=== PATIENT | male | born 1930 | race Caucasian/White ===

== ENCOUNTER 2017-04-26 07:49 | Inpatient (IN) | payer OTHER, MEDICARE ==
[2017-04-11 14:38] LABS: % IMMATURE GRANULYOCYTES 0.6 % (0.0-1.1); ABSOLUTE IMMATURE GRANULOCYTES 0.05 10^3/uL (0.00-0.10); ABSOLUTE NRBC COUNT 0.02 10^3/uL (0-0.01); ADD DIFF? NO; ADD MORPH? NO; ADD SCAN? NO; ATYPICAL LYMPHOCYTE FLAG 20 (0-99); FRAGMENT RBC FLAG 0 (0-99); HEMATOCRIT 47.2 % (40.0-51.0); HEMOGLOBIN 16.2 g/dL (13.7-17.5); LEFT SHIFT FLG 0 (0-99); LIPEMIA HEMOLYSIS FLAG 90 (0-99); MEAN CELL HEMOGLOBIN 30.5 pg (27.9-34.1); MEAN CELL HEMOGLOBIN CONCENTR. 34.3 g/dL (32.4-36.7); MEAN CELL VOLUME 88.7 fL (81.5-99.8); MEAN PLATELET VOLUME 9.6 fL (8.7-11.7); NRBC-AUTO% 0.2 % (0.0-0.2); PLATELET CLUMPS FLAG 0 (0-99); PLATELET COUNT 247 10^3/uL (150-400); RED BLOOD CELL COUNT 5.32 10^6/uL (4.40-6.38); RED CELL DISTRIBUTION WIDTH 12.8 % (11.5-15.2)
[2017-04-11 16:27] LABS: ANION GAP 12 mEq/L (8-16); CALCIUM 9.7 mg/dL (8.5-10.4); CARBON DIOXIDE 24 mEq/l (22-31); CHLORIDE 106 mEq/L (97-110); CREATININE 1.1 mg/dL (0.7-1.3); GLOMERULAR FILTRATION RATE > 60; GLUCOSE 114 mg/dL (70-100); POTASSIUM 3.8 mEq/L (3.5-5.2); SODIUM 142 mEq/L (134-144)
[~2017-04-26 07:49] MED LIST: POVIDONE-IODINE 20 ML in SODIUM CL IRRIG SOLUTION 500 ML IRR ONE; ROPIVACAINE 0.2% 80 MG, EPINEPHrine 0.2 MG, KETOROLAC TROMETHAMINE 30 MG in BAG 0 ML IU ONE; TRANEXAMIC ACID 700 MG in NS 100 ML IV ONE; VANCOMYCIN 1 GM VIAL ONE; ceFAZolin 1 GM/5 ML SYR ONE
[2017-04-26] MEDS ORDERED: ACETAMINOPHEN 325 MG TAB PO ONE (08:04)
[2017-04-26] MEDS ORDERED: FAMOTIDINE 20 MG TAB PO ONE (08:04)
[2017-04-26] MEDS ORDERED: ceFAZolin 2 GM/DEXTROSE 100 ML IV ONE (08:04)
[2017-04-26] MEDS ORDERED: DEXAMETHASONE 4 MG/ML VIAL IVP ONE (08:04)
[2017-04-26] MEDS ORDERED: LR 1,000 ML IV ONE (08:09)
[2017-04-26] MEDS ORDERED: LIDOCAINE 1% 2 ML INJ ID PRN (08:09)
[2017-04-26] MEDS ORDERED: LIDOCAINE 1% 2 ML INJ ONE (08:21)
[2017-04-26] MEDS ORDERED: FAMOTIDINE 20 MG TAB ONE (08:32)
[2017-04-26] MEDS ORDERED: ACETAMINOPHEN 325 MG TAB ONE (08:32)
[2017-04-26] MEDS ORDERED: DEXAMETHASONE 4 MG/ML VIAL ONE (08:32)
[2017-04-26] MEDS ORDERED: CEFAZOLIN 2 GM/DEXTROSE/100 ML BAG IV ONE (08:33)
--- NOTE | 2017-04-26 08:58 | PDHPUP ---
History & Physical Update H&P update statement: This history and physical update is based on an assessment of the patient which was completed after admission or registration (within 24 hours), but prior to the surgery/procedure. H&P update: H&P reviewed & patient examined, no change in patient's condition since H&P completed
[2017-04-26] MEDS ORDERED: MIDAZOLAM 2 MG/2 ML VIAL IVP ONE (09:21)
--- NOTE | 2017-04-26 09:21 | PDANEPAE ---
ANE History of Present Illness OA knee ANE Past Medical History - Cardiovascular History Hx Hypertension: Yes Hx Arrhythmias: No Hx Chest Pain: No Hx Coronary Artery / Peripheral Vascular Disease: Yes Hx CHF / Valvular Disease: No Hx Palpitations: No Cardiovascular History Comment: [place] 15 YRS AGO - Pulmonary History Hx COPD: No Hx Asthma/Reactive Airway Disease: No Hx Recent Upper Respiratory Infection: No Hx Oxygen in Use at Home: No Hx Sleep Apnea: No Sleep Apnea Screening Result - Last Documented: Negative - Neurologic History Hx Cerebrovascular Accident: No Hx Seizures: No Hx Dementia: No - Endocrine History Hx Diabetes: Yes Endocrine History Comment: HYPOTHYROID - Renal History Hx Renal Disorders: No Renal History Comment: PROSTATECTOMY - Liver History Hx Hepatic Disorders: No - Neurological & Psychiatric Hx Hx Neurological and Psychiatric Disorders: No - Cancer History Hx Cancer: Yes Cancer History Comment: PROSTATE - Congenital Disorder History Hx Congenital Disorders: No - GI History Hx Gastrointestinal Disorders: No - Other Health History Other Health History: SKIN CONDITION PALMS HANDS - DRYNESS,CRACKING - Chronic Pain History Chronic Pain: Yes (R KNEE & L FOOT) - Surgical History Prior Surgeries: L TKA. R REJI. PROSTATE. CATARACTS. ANGIOGRAM W/STENT 15 YRS AGO ANE Review of Systems - Exercise capacity METS (RN): 4 METS ANE Patient History - Allergies Allergies/Adverse Reactions: No Known Allergies Allergy (Unverified 03/16/17 17:04) - Home Medications Home Medications: Ascorbic Acid [Vitamin C 500 mg (*)] 500 mg PO DAILY 03/16/17 [Last Taken ] Aspirin EC [Aspirin EC 81 mg (*)] 81 mg PO DAILY 03/16/17 [Last Taken 04/19/17] Atorvastatin Calcium [Lipitor 10 mg (*)] 10 mg PO DAILY 03/16/17 [Last Taken 07:00] Calcipotriene 1 cas TP BID 03/16/17 [Last Taken 04/19/17] Calcium Carb W/Vit D [Calcium Carb W/Vit D 500/200 (*)] 500 mg PO BID 03/16/17 [ Last Taken 04/19/17] Cholecalciferol Vit D3 [Vitamin D3 (*)] 2,000 units PO BID 03/16/17 [Last Taken 04/19/17] Herbals/Supplements -Info Only 1 ea PO DAILY 03/16/17 [Last Taken 04/19/17] Hydrochlorothiazide [HCTZ (*)] 25 mg PO DAILY 03/16/17 [Last Taken 04/25/17 08: 00] Levothyroxine [Synthroid 175 mcg (*)] 175 mcg PO DAILY06 03/16/17 [Last Taken 07:00] Lisinopril [Zestril 20 mg (*)] 20 mg PO DAILY 03/16/17 [Last Taken 04/25/17 08: 00] Magnesium Oxide [Magnesium Oxide 400 mg (*)] 800 mg PO DAILY 03/16/17 [Last Taken 04/19/17] Multivitamins [Multivitamin (*)] 1 each PO DAILY 03/16/17 [Last Taken 04/19/17] [place]-3 Fatty Acids [Fish Oil 1000 mg (*)] 1,000 mg PO BID 03/16/17 [Last Taken 04/19/17] Potassium Cl [Klor-Con 20 meq (*)] 20 meq PO DAILY 03/16/17 [Last Taken 08:00] Triamcinolone 0.1% [Triamcinolone 0.1% Cream (*)] 1 cas TP BID 03/16/17 [Last Taken 04/19/17] amLODIPine BESYLATE [Norvasc 5 mg (*)] 5 mg PO DAILY 03/16/17 [Last Taken 07:00] - NPO status NPO Since - Liquids (Date): 04/25/17 NPO Since - Liquids (Time): 22:00 NPO Since - Solids (Date): 04/25/17 NPO Since - Solids (Time): 19:30 - Smoking Hx Smoking Status: Former smoker - Family Anes Hx Family Hx Anesthesia Complications: NEG ANE Labs/Vital Signs - Labs Result Diagrams: 04/11/17 14:26 04/11/17 14:26 - Vital Signs Blood Pressure: 137/95 Heart Rate: 75 Respiratory Rate: 16 O2 Sat (%): 93 Height: 172.72 cm Weight: 70.307 kg ANE Physical Exam - Airway Neck exam: FROM Mallampati Score: Class 2 Mouth exam: normal dental/mouth exam - Pulmonary Pulmonary: no respiratory distress - Cardiovascular Cardiovascular: regular rate and rhythym - ASA Status ASA Status: III ANE Anesthesia Plan Anesthesia Plan: MAC, spinal Regional Anesthesia: adductor canal FNB
[2017-04-26] MEDS ORDERED: PROPOFOL/EMULSION 500 MG/50 ML BOTTLE IV ONE (09:29)
[2017-04-26] MEDS ORDERED: PHENYLEPHRINE HCL 100 MCG/ML SYR ONE ×2 (09:59→10:49)
[2017-04-26] MEDS ORDERED: ROPIVACAINE HCL 150 MG/30 ML INJ ONE (10:17)
[2017-04-26] MEDS ORDERED: PROPOFOL 200 MG/20 ML VIAL ONE (10:50)
[2017-04-26] MEDS ORDERED: NALOXONE HCL 0.4 MG/ML INJ IVP PRN (11:15)
[2017-04-26] MEDS ORDERED: fentaNYL 100 MCG/2 ML INJ IVP PRN (11:15)
[2017-04-26] MEDS ORDERED: HYDROmorphONE/DILAUDID 1 MG/ML SYR IVP PRN (11:15)
[2017-04-26] MEDS ORDERED: ONDANSETRON 4 MG/2 ML VIAL IVP PRN ×2 (11:15→11:34)
--- NOTE | 2017-04-26 11:19 | POSTOPPROG ---
Post Op Note Date of Operation: 04/26/17 Surgeon: Papo Browne Shear Setter: Mian Chopra/Ayo Patel Anesthesiologist: Lenin Anesthesia: IV Sedation, Spinal Post-op Diagnosis: Right knee degenerative arthritis. Procedure: Right total knee arthroplasty. Inf/Abcess present in the surg proc area at time of surgery?: No EBL: 50-100 (Adductor canal block)
[2017-04-26] MEDS ORDERED: PROMETHAZINE HCL 25 MG SUPPR PR PRN (11:34)
[2017-04-26] MEDS ORDERED: DIPHENOXYLATE/ATROPINE LOMOTIL 1 TAB PO PRN (11:34)
[2017-04-26] MEDS ORDERED: BISACODYL 10 MG SUPP PR PRN (11:34)
[2017-04-26] MEDS ORDERED: ONDANSETRON DISINTEGRATING 4 MG TAB PO PRN (11:34)
[2017-04-26] MEDS ORDERED: MAGNESIUM HYDROXIDE 30 ML UDCUP PO PRN (11:34)
[2017-04-26] MEDS ORDERED: KETOROLAC 30 MG/1 ML SDV IVP PRN (11:34)
[2017-04-26] MEDS ORDERED: POLYETHYLENE GLYCOL 3350 17 GM PKT PO PRN (11:34)
[2017-04-26] MEDS ORDERED: PROMETHAZINE HCL 25 MG/ML INJ IVP PRN (11:34)
[2017-04-26] MEDS ORDERED: METOCLOPRAMIDE 10 MG/2 ML VIAL IVP PRN (11:34)
[2017-04-26] MEDS ORDERED: TEMAZEPAM 15 MG CAP PO PRN (11:34)
[2017-04-26] MEDS ORDERED: oxyCODONE IR 5 MG TAB PO PRN (11:34)
[2017-04-26] MEDS ORDERED: LACTULOSE 20 GM/30 ML UDCUP PO PRN (11:34)
[2017-04-26] MEDS ORDERED: CYCLOBENZAPRINE 10 MG TAB PO PRN (11:34)
[2017-04-26] MEDS ORDERED: diphenhydrAMINE 25 MG CAP PO PRN (11:34)
[2017-04-26] MEDS ORDERED: PHARMACY PAIN CONSULT 1 EA MISC PRN (11:34)
[2017-04-26] MEDS ORDERED: NS 500 ML IV PRN (11:34)
--- NOTE | 2017-04-26 11:47 | POSTANESTH ---
Post Anesthetic Evaluation Cardiovascular Status: Normal, Stable Respiratory Status: Normal, Stable Level of Consciousness/Mental Status: Can Participate in Eval Pain Control: Adequate, Prn Tx Ordered Nausea/Vomiting Control: Adequate, Prn Tx Ordered Complications Possibly Related to Anesthesia: None Noted
[2017-04-26] MEDS ORDERED: LR 1,000 ML IV SCH (12:00)
[2017-04-26] MEDS: ACETAMINOPHEN 325 MG TAB PO SCH ×3 (12:44→23:48)
--- NOTE | 2017-04-26 13:55 | GOP ---
[f rep st] OPERATIVE REPORT DATE OF OPERATION: 04/26/2017 SURGEON: Papo Browne MD AMALGAMATOR: Mian Chopra and Ayo Patel. ANESTHESIA: A combination of Marcaine, spinal, IV sedation, and adductor canal block. ANESTHESIOLOGIST: Dr. Tavon Phelps. PREOPERATIVE DIAGNOSIS: Right knee severe degenerative arthritis, primarily involving the patellofe moral joint. POSTOPERATIVE DIAGNOSIS: Right knee severe degenerative arthritis, primarily involving the patellof emoral joint. PROCEDURE PERFORMED: Right total knee arthroplasty, cemented, Mercedes and Nephew Journey II, posterio r stabilized. FINDINGS: DESCRIPTION OF PROCEDURE: The patient was given 2 g of preoperative IV Ancef within 60 minutes of s urgery. He also received IV tranexamic acid at a dose of 10 mg/kg. He was placed on the operating room table and given spinal anesthesia with Marcaine by Dr. Phelps. He was then placed supine and given IV sedation. A Gary catheter was not used. He wore a MEEK stocking and SCD on the nonop erative leg. His right lower extremity was prepped with ChloraPrep from the upper thigh tourniquet to the tips of the toes. It was draped free using sterile sheets, stockinette, and Ioban plastic ad hesive drape. The right lower leg was wrapped with compressive Coban. The leg was exsanguinated wi th elevation and a 6-inch compressive wrap, and the tourniquet was inflated to 250 mmHg. The World Health Organization time-out was performed to verify the correct patient identity and the correct grewal rgical side and site. The Spencer time-out was also performed. The eFlixayo leg holding device was sterilely attached to the operating room table and used throughout the procedure to help position the knee. A straight midline incision was made centered on the cevallos lla. Subcutaneous tissues were sharply divided and hemostasis was obtained using electrocautery. A medial subcutaneous flap was developed, and the capsule and synovium were opened in a medial parapa tellar fashion. Extensive degenerative changes were present in his patellofemoral joint. He was er russell down to subchondral bone on both the patella and the femoral sulcus. The medial capsule and pe riosteum were lightly elevated off the rim of the medial tibial plateau all the way around to the po steromedial corner. In order to improve exposure, the patella was prepared first. The original thickness of the patella was measured. Peripheral osteophytes were removed. I cut a f lat surface on the back of the patella. It was sized for a 41 mm resurfacing component. I removed enough bone from the patella such that the remaining bone plus the thickness of the patellar compone nt recreated the original thickness of the patella. The composite thickness of the patella was 22 m m. The intramedullary alignment guide system was used to set up the distal femoral cut. The distal femur was cut in 5 degrees of valgus. I made a +2 mm cut on the distal femur. The sizing jig was used to determine proper femoral sizing. I shifted the jig anteriorly 2 mm in order to accommodate a size 6 component. Without notching the anterior cortex. The 5 in 1 cutting block was applied, an d the anterior and posterior condylar cuts and chamfer cuts were made. The final jig was used to re move the central portion of the distal femur to accommodate the posterior stabilized femoral compone nt. I was careful to determine proper rotation by referencing off Whitesides line. Each cut was ch ecked for accuracy before and after it was made. The femur was sized for a size 6 posterior stabili zed component. The trial component was tapped securely into place and was a good fit. Next, the tibia was prepared. The proximal tibial cut was made using the extramedullary alignment g uide system. The cut was made in a few degrees of posterior slope. I was careful to achieve proper varus, valgus alignment and proper rotation. The posterior compartment was cleared of meniscal rem nants. Osteophytes were removed from the back of his femoral condyles. I checked the flexion and e xtension gaps, and they were equal, balanced and rectangular. The tibia was sized for a size 5 component. With the trial components in place, I selected a 10 mm polyethylene posterior stabilized tibial insert. The knee came to full extension and flexed to 130 degrees. There was no overstuffing in flexion. The collateral ligaments were stable and balanced i n 90 degrees of flexion and full extension. The trial patellar button was applied, and patellar tra cking was excellent without any digital pressure. 40 mL of a joint anesthetic cocktail were injected in the posterior capsule, the quadriceps muscle a nd tendon areas, and the subcutaneous tissues along the skin edges. A second dose of IV tranexamic acid was given at a dose of 10 mg/kg. The surfaces were prepared for cementing. They were carefully cleaned with the pulsating lavage and thoroughly dried. The CarboJet device was used to blow dry the cancellous surfaces. A double batc h of methylmethacrylate cement with 2 g of added vancomycin powder was mixed. While it was still in a semi liquid state, all 3 components were cemented in place. Excess cement was removed before it hardened. The 10 mm trial tibial insert was re-tried and was the proper thickness. The actual comp onent was inserted and locked into place. The knee was thoroughly irrigated one final time with a d ilute Betadine solution. The tourniquet was deflated. Total tourniquet time was 48 minutes. The vastus medialis portion of the extensor mechanism was repaired with several interrupted figure-o f-eight #2 FiberWire sutures. The capsule and synovium were closed first with multiple interrupted [id number] 0 PDS sutures, followed by a running #2 barbed Ethicon Stratafix PDO suture. The grewal bcutaneous tissues were closed with a running 0 barbed Ethicon Stratafix Monoderm suture. The skin was closed with a running 3-0 barbed Ethicon Stratafix Monoderm subcuticular suture. The skin edges were sealed with half-inch Steri-Strips. The wound was covered with Xeroform gauze and flat 4x4s. The knee was wrapped with Kerlix and a 6 inch compressive wrap. A long-leg MEEK stocking and SCD we re applied followed by the cooling device. The patient wore a stocking and SCD on the opposite leg during the procedure. I used a size 6 cemented Mercedes and Nephew Oxinium posterior stabilized femoral component, size 5 dayton ented tibial base plate, a 10 mm posterior stabilized tibial insert and a 41 mm cemented round all-p olyethylene resurfacing patellar component. The estimated blood loss following placement of the tourniquet was about 100 mL. The sponge and nee dle count were correct on 2 occasions. The patient was awakened from anesthesia, transferred to his [facility] and taken to the PACU in satisfactory condition. There were no recognized intraope rative complications. In the PACU, for additional postoperative pain control, Dr. Phelps performed an adductor canal block. Mian Chopra and Ayo Patel acted as surgical assistants. Their assistance was a medical neces sity to safely complete the procedure. /[id number]/MODL
[2017-04-26] MEDS: ceFAZolin 2 GM/DEXTROSE 100 ML IV SCH ×2 (17:34→23:49)
[2017-04-26] MEDS: SENNOSIDES/DOCUSATE SODIUM TAB PO SCH (21:14)
[2017-04-26] MEDS: ASPIRIN 325 MG TAB PO SCH (21:14)
[2017-04-26] MEDS: FAMOTIDINE 20 MG TAB PO SCH (21:15)
[2017-04-26] MEDS: traMADol 50 MG TAB PO PRN (21:15)
[2017-04-26] MEDS: CALCIPOTRIENE TP SCH (21:17)
[2017-04-26] MEDS: TRIAMCINOLONE 0.1% 15 GM CRTUBE TP SCH (21:18)
[2017-04-27] MEDS: ACETAMINOPHEN 325 MG TAB PO SCH ×2 (04:44→11:54)
[2017-04-27] MEDS: traMADol 50 MG TAB PO PRN ×2 (04:44→11:53)
[2017-04-27 05:13] LABS: HEMATOCRIT 40.3 % (40.0-51.0); HEMOGLOBIN 14.3 g/dL (13.7-17.5)
[2017-04-27] MEDS ORDERED: LEVOTHYROXINE 175 MCG TAB PO SCH (06:00)
[2017-04-27 08:17] VITALS: BP 131/72; PULSE 69; RESP 20; TEMP 97.5; O2SAT 94
[2017-04-27] MEDS: ASPIRIN 325 MG TAB PO SCH (08:40)
[2017-04-27] MEDS: SENNOSIDES/DOCUSATE SODIUM TAB PO SCH (08:41)
[2017-04-27] MEDS: FAMOTIDINE 20 MG TAB PO SCH (08:41)
[2017-04-27] MEDS ORDERED: ATORVASTATIN CALCIUM 10 MG TAB PO SCH (09:00)
[2017-04-27] MEDS ORDERED: HYDROCHLOROTHIAZIDE 25 MG TAB PO SCH (09:00)
[2017-04-27] MEDS ORDERED: POTASSIUM CL 20 MEQ TAB PO SCH (09:00)
[2017-04-27] MEDS ORDERED: amLODIPine BESYLATE 5 MG TAB PO SCH (09:00)
[2017-04-27] MEDS ORDERED: FERROUS SULFATE 140 MG TAB.ER PO SCH (09:00)
[2017-04-27] MEDS ORDERED: LISINOPRIL 20 MG TAB PO SCH (09:00)
[2017-04-27] MEDS ORDERED: MAGNESIUM OXIDE 400 MG TAB PO SCH (09:00)
[2017-04-27] MEDS: CALCIPOTRIENE TP SCH (09:04)
[2017-04-27] MEDS: TRIAMCINOLONE 0.1% 15 GM CRTUBE TP SCH (09:04)
--- NOTE | 2017-04-27 09:37 | SOAPPROG ---
SOAP Progress Note Assessment/Plan: Assessment: POD #1, s/p TKA Awake, alert, afebrile. Mild pain. Dressing clean and dry. H/H ok. OOB yesterday. Post op films look good. Plan: D/c to home later today. Cont PT/OT today. 04/27/17 09:35 Objective: Vital Signs Temp Pulse Resp BP Pulse Ox 36.4 C 69 20 131/72 H 94 04/27/17 08:00 04/27/17 08:00 04/27/17 08:00 04/27/17 08:00 04/27/17 08:45 Laboratory Results 04/27/17 04:31 04/11/17 14:26 04/26/17 04/27/17 04/28/17 05:59 05:59 05:59 Intake Total 1875 Output Total 750 Balance 1125 ICD10 Worksheet Patient Problems: Problems Problem Status Onset Osteoarthritis of right knee Acute
--- NOTE | 2017-04-27 09:40 | PDIAF ---
- Diagnosis Diagnosis: R knee OA Code Status: Full Code - Medication Management Discharge Medications: Medications to Continue on Transfer Ascorbic Acid [Vitamin C 500 mg (*)] 500 mg PO DAILY 03/16/17 [Last Taken ] Atorvastatin Calcium [Lipitor 10 mg (*)] 10 mg PO DAILY 03/16/17 [Last Taken 07:00] Calcipotriene 1 cas TP BID 03/16/17 [Last Taken 04/19/17] Calcium Carb W/Vit D [Calcium Carb W/Vit D 500/200 (*)] 500 mg PO BID 03/16/17 [ Last Taken 04/19/17] Cholecalciferol Vit D3 [Vitamin D3 (*)] 2,000 units PO BID 03/16/17 [Last Taken 04/19/17] Herbals/Supplements -Info Only 1 ea PO DAILY 03/16/17 [Last Taken 04/19/17] Hydrochlorothiazide [HCTZ (*)] 25 mg PO DAILY 03/16/17 [Last Taken 04/25/17 08: 00] Levothyroxine [Synthroid 175 mcg (*)] 175 mcg PO DAILY06 03/16/17 [Last Taken 07:00] Lisinopril [Zestril 20 mg (*)] 20 mg PO DAILY 03/16/17 [Last Taken 04/25/17 08: 00] Magnesium Oxide [Magnesium Oxide 400 mg (*)] 800 mg PO DAILY 03/16/17 [Last Taken 04/19/17] Multivitamins [Multivitamin (*)] 1 each PO DAILY 03/16/17 [Last Taken 04/19/17] [place]-3 Fatty Acids [Fish Oil 1000 mg (*)] 1,000 mg PO BID 03/16/17 [Last Taken 04/19/17] Potassium Cl [Klor-Con 20 meq (*)] 20 meq PO DAILY 03/16/17 [Last Taken 08:00] Triamcinolone 0.1% [Triamcinolone 0.1% Cream (*)] 1 cas TP BID 03/16/17 [Last Taken 04/19/17] amLODIPine BESYLATE [Norvasc 5 mg (*)] 5 mg PO DAILY 03/16/17 [Last Taken 07:00] Acetaminophen [Tylenol 325mg (*)] 650 mg PO Q6HRS #0 tab 04/27/17 [Last Taken Unknown] Aspirin [Aspirin 325 mg (*)] 325 mg PO DAILY #21 tab 04/27/17 [Last Taken Unknown] Ferrous Sulfate [Slow Fe 140 MG (*)] 140 mg PO DAILY #30 tab.er 04/27/17 [Last Taken Unknown] Ondansetron Odt [Zofran Odt 4 mg (*)] 4 mg PO Q4HRS PRN #0 tab 04/27/17 [Last Taken Unknown] oxyCODONE IR [Oxycodone Ir (*)] 5 - 10 mg PO Q3HRS PRN #0 tab 04/27/17 [Last Taken Unknown] traMADol [Ultram 50 mg (*)] 50 mg PO Q6HRS PRN #0 tab 04/27/17 [Last Taken Unknown] Discharge Medications: Refer to the Discharge Home Medication list for PRN reason. PICC Care - Routine: N/A - Orders Services needed: Home Care, Physical Therapy Home Care Face to Face: I certify that this patient was under my care and that I had the required [id number] encounter meeting the encounter requirements on the discharge day. My findings support the fact that the patient is homebound as defined in CMS Chapter 7 Medicare Benefits Manual 30.1.1, The condition of the patient is such that there exists a normal inability to leave home and consequently, leaving home would require a considerable and taxing effort. Diet Recommendation: no restrictions on diet Diet Texture: Regular Texture Diet Gary: Not applicable Ulises Stockings Discontinue Date: 1 week Wound Care Instructions: keep clean and dry. You may shower. Activity/Weight Bearing Restrictions: as tolerated. Equipment: Zero knee while in bed as tolerated. - Follow Up Care Current Providers and Referrals: Odalis Cook MD [Primary Care Provider] - Papo Browne MD [Medical Doctor] - 05/11/17 1:30 am
== END 2017-04-27 13:20 | disposition home health service (06) | DRG 470 ==
LOC: F3N 07:49
PROVIDERS: ADMIT Orthopaedic Surgery; ATTEND Orthopaedic Surgery
PROC: 0SRC0J9 Replacement of Right Knee Joint with Synthetic Substitute, Cemented, Open Approach (ICD-10-PCS; principal; 2017-04-26 09:45)
DX: M17.11 Unilateral primary osteoarthritis, right knee (principal); Z87.891 Personal history of nicotine dependence; Z85.46 Personal history of malignant neoplasm of prostate
CPT/HCPCS: 97116-GP; 97161-GP; 97165-GO; C1713; G8978-GP-CI; G8979-GP-CI; G8980-GP-CI; G8987-GO-CI; G8988-GO-CI; G8989-GO-CI; J0171; J0690; J1100; J1885; J2250; J2370; J2704; J2795; J3370

== ENCOUNTER → 2017-11-13 | Outpatient (CLI) | payer OTHER, MEDICARE ==
--- NOTE | 2017-11-14 13:43 | CPEEG ---
[f rep st] ELECTROENCEPHALOGRAM DATE OF STUDY: 11/13/2017 DATE OF STUDY: 11/13/2017. INTERPRETATION: Normal EEG during wakefulness and drowsiness. There were no potentially epileptogen ic abnormalities present during the recording. REPORT: This EEG contains 9-10 Hz alpha to the posterior head regions. There was no abnormal activa tion at rest, during photic stimulation or hyperventilation. The patient became drowsy during the st udy. There was no abnormal activation during drowsiness or during times of arousal. /[id number]/MODL
== END ==
LOC: FCPNEURO 14:44
PROVIDERS: ATTEND Psychiatry & Neurology Neurology
DX: R41.3 Other amnesia (principal)

== ENCOUNTER → 2017-11-15 | Outpatient (CLI) | payer OTHER, MEDICARE | LOC: FIMAGING 08:33 | PROVIDERS: ATTEND Psychiatry & Neurology Neurology | DX: R90.82 White matter disease, unspecified (principal); G31.9 Degenerative disease of nervous system, unspecified ==